=== PATIENT | male | born 1990 | race African-American/Black ===

== ENCOUNTER 2016-04-23 08:29 | Emergency (ER) | payer SELFPAY ==
[~2016-04-23] VITALS: Ht 177.8 cm; Wt 90.0 kg
[~2016-04-23 08:29] MED LIST: PROM25SU8 PO
[2016-04-23 08:30] VITALS: BP 139/90; PULSE 79; RESP 15; TEMP 97.9; O2SAT 97
--- NOTE | 2016-04-23 08:48 | PD ---
HPI Chief Complaint: Chest Pain Time Seen by Provider: 08:46 Travel History International Travel<30 days: No Contact w/Intl Traveler<30days: No Traveled to known affect area: No History of Present Illness HPI 26-year-old male with history of asthma and bronchitis, presents to the ER today because of several days history of cough, left-sided chest pains especially with deep breaths, cold symptoms. He denies any fevers, shortness of breath, or any other symptoms. Modifying Factors: None Associated Signs & Symptoms: Cough, left-sided chest pains with coughing and deep breaths, cold symptoms Risk Factors: None PFSH Past Medical History Asthma: Yes (CHILDHOOD) Diminished Hearing: No Musculoskeletal: Yes (SCOLIOSIS) Respiratory: Yes (ASHTMA) Immunizations Current: Yes Past Surgical History Surgical History: No Previous Surgery Social History Alcohol Use: No Tobacco Use: No Substance Use: No Allergies-Medications (Allergen,Severity, Reaction): Coded Allergies: No Known Allergies (Verified , 04/23/16) Reported Meds & Prescriptions Reported Meds & Active Scripts Active No Active Prescriptions or Reported Medications Review of Systems Except as stated in HPI: all other systems reviewed are Neg Physical Exam Narrative GENERAL: Well-nourished, well-developed young -[place] male patient in no acute distress. SKIN: Warm and dry. HEAD: Normocephalic. EYES: No scleral icterus. No injection or drainage. NECK: Supple, trachea midline. CARDIOVASCULAR: Regular rate and rhythm without murmurs, gallops, or rubs. RESPIRATORY: Breath sounds equal bilaterally. No accessory muscle use. No wheezes, crackles, or rhonchi. GASTROINTESTINAL: Abdomen soft, non-tender, nondistended. MUSCULOSKELETAL: No cyanosis, or edema. BACK: Nontender without obvious deformity. No CVA tenderness. Data Data Last Documented VS Vital Signs Date Time Temp Pulse Resp B/P Pulse Ox O2 Delivery O2 Flow Rate FiO2 04/23/16 10:09 71 15 129/85 98 Room Air 04/23/16 08:30 97.9 Orders Electrocardiogram (04/23/16 08:34) Chest, Single Ap (04/23/16 08:43) Basic Metabolic Panel (Bmp) (04/23/16 08:46) Ckmb (Isoenzyme) Profile (04/23/16 08:46) Complete Blood Count With Diff (04/23/16 08:46) D-Dimer (04/23/16 08:46) Magnesium (Mg) (04/23/16 08:46) Prothrombin Time / Inr (Pt) (04/23/16 08:46) Act Partial Throm Time (Ptt) (04/23/16 08:46) Troponin I (04/23/16 08:46) Ecg Monitoring (04/23/16 08:46) Bilateral Bp Monitoring (04/23/16 08:46) Iv Access Insert/Monitor (04/23/16 08:46) Oximetry (04/23/16 08:46) Oxygen Administration (04/23/16 08:46) Sodium Chloride 0.9% Flush (Ns Flush) (04/23/16 09:00) CKMB (04/23/16 08:50) CKMB% (04/23/16 08:50) Labs Laboratory Tests Test 04/23/16 08:50 White Blood Count 5.2 TH/MM3 Red Blood Count 5.58 MIL/MM3 Hemoglobin 14.9 GM/DL Hematocrit 44.3 % Mean Corpuscular Volume 79.4 FL Mean Corpuscular Hemoglobin 26.6 PG Mean Corpuscular Hemoglobin 33.5 % Concent Red Cell Distribution Width 12.6 % Platelet Count 208 TH/MM3 Mean Platelet Volume 9.5 FL Neutrophils (%) (Auto) 45.6 % Lymphocytes (%) (Auto) 38.4 % Monocytes (%) (Auto) 9.7 % Eosinophils (%) (Auto) 5.7 % Basophils (%) (Auto) 0.6 % Neutrophils # (Auto) 2.4 TH/MM3 Lymphocytes # (Auto) 2.0 TH/MM3 Monocytes # (Auto) 0.5 TH/MM3 Eosinophils # (Auto) 0.3 TH/MM3 Basophils # (Auto) 0.0 TH/MM3 CBC Comment DIFF FINAL Differential Comment Prothrombin Time 11.4 SEC Prothromb Time International 1.0 RATIO Ratio Activated Partial 28.0 SEC Thromboplast Time D-Dimer Quantitative (PE/DVT) 0.22 MG/L FEU Sodium Level 142 MEQ/L Potassium Level 3.8 MEQ/L Chloride Level 106 MEQ/L Carbon Dioxide Level 28.4 MEQ/L Anion Gap 8 MEQ/L Blood Urea Nitrogen 13 MG/DL Creatinine 0.89 MG/DL Estimat Glomerular Filtration 125 ML/MIN Rate Random Glucose 79 MG/DL Calcium Level 8.4 MG/DL Magnesium Level 2.1 MG/DL Total Creatine Kinase 129 U/L Creatine Kinase MB 0.8 NG/ML Troponin I LESS THAN 0.02 NG/ML MDM Medical Decision Making Medical Screen Exam Complete: Yes Emergency Medical Condition: Yes Medical Record Reviewed: Yes Interpretation(s) Laboratory Tests Test 04/23/16 08:50 Mean Corpuscular Volume 79.4 FL (80.0-100.0) Mean Corpuscular Hemoglobin 26.6 PG (27.0-34.0) Monocytes (%) (Auto) 9.7 % (0.0-8.0) Eosinophils (%) (Auto) 5.7 % (0.0-4.0) Calcium Level 8.4 MG/DL (8.5-10.1) Troponin I LESS THAN 0.02 NG/ML (0.02-0.05) Last 24 hours Impressions Chest X-Ray 04/23/16 0843 Signed Impressions: Service Date/Time: Saturday, April 23, 2016 08:50 - CONCLUSION: 1. No acute cardiopulmonary findings. 2. 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 Kaleb Yoo MD Differential Diagnosis Cough, dyspnea, cold symptomsbronchitis versus asthma versus costochondritis versus ACS versus pneumonia Narrative Course EKG did not show any signs of acute ST-T changes. Chest x-ray was unremarkable for any pneumonia or any signs of acute pulmonary processes. Cardiac enzymes and negative. D-dimer is negative. Vital signs are stable in the ER. At this point, suspect he may have some underlying costochondritis causing symptoms. My plan would be to treat him accordingly and symptomatically for discomfort. Follow-up with primary care doctor. Return for any worsening in symptoms as necessary. The plan has been discussed with him and he states understanding. Diagnosis Primary Impression: Costochondritis Med/Other Pt SpecificInfo: Prescription(s) given Scripts Albuterol 6.7 GM Inh (Proventil Hfa 6.7 GM Inh)90 Mcg/Act Aer2 Puff INH Q4-6H PRN (SHORTNESS OF BREATH) #1 INHALER Ref 0 Prov:Jerrell Head MD 04/23/16 Azithromycin (Zithromax Z-Alfonso)250 Mg [id number] Mg PO DIRECTED #1 DSPK Ref 0 500 MG (2 tabs) day 1, then 1 tab days 2-5. Prov:Jerrell Head MD 04/23/16 Ibuprofen (Motrin Ib)200 Mg [id number] Mg PO Q6H PRN (PAIN SCALE 1 TO 10) #20 TAB Ref 0 Prov:Jerrell Head MD 04/23/16 Disposition: 01 DISCHARGE HOME Condition: Stable Jerrell Head MD Apr 23, 2016 08:48
[2016-04-23 08:53] VITALS: BP_SYST 127; BP_SYST 129; BP_DIAS 82; BP_DIAS 83; PULSE 72; RESP 16; O2SAT 98
[2016-04-23] MEDS ORDERED: SODIUM CHLORIDE 0.9% FLUSH 5 ML FLUSH IVF PRN (09:00)
[2016-04-23 09:01] LABS: AUTOMATED NEUTROPHIL # 2.4 TH/MM3 (1.8-7.7); BASOPHIL % 0.6 % (0.0-2.0); EOSINOPHIL # 0.3 TH/MM3 (0-0.4); EOSINOPHIL % 5.7 % (0.0-4.0); HEMATOCRIT 44.3 % (39.0-51.0); HEMO FLAGS DIFF FINAL; LYMPH % 38.4 % (9.0-44.0); MEAN CELL VOLUME 79.4 FL (80.0-100.0); MEAN CORPUSCULAR HEMOGLOBIN 26.6 PG (27.0-34.0); MEAN CORPUSCULAR HGB CONC 33.5 % (32.0-36.0); MONO % 9.7 % (0.0-8.0); NEUT % 45.6 % (16.0-70.0); PLATELET COUNT 208 TH/MM3 (150-450); RED BLOOD COUNT 5.58 MIL/MM3 (4.50-5.90); RED CELL DISTRIBUTION WIDTH 12.6 % (11.6-17.2); WHITE BLOOD COUNT 5.2 TH/MM3 (4.0-11.0)
[2016-04-23 09:17] LABS: ANION GAP 8 MEQ/L (5-15); BICARBONATE 28.4 MEQ/L (21.0-32.0); BLOOD UREA NITROGEN 13 MG/DL (7-18); CHLORIDE 106 MEQ/L (98-107); GLOMERULAR FILTRATION RATE 125 ML/MIN (>89); MAGNESIUM 2.1 MG/DL (1.5-2.5); POTASSIUM 3.8 MEQ/L (3.5-5.1); SODIUM (NA) 142 MEQ/L (136-145)
[2016-04-23 09:21] LABS: CREATINE KINASE 129 U/L (39-308)
[2016-04-23 09:22] LABS: PROTHROMBIN TIME - PATIENT 11.4 SEC (9.8-11.6)
[2016-04-23 09:34] LABS: CKMB 0.8 NG/ML (0.5-3.6)
--- NOTE | 2016-04-23 09:39 | RADRPT ---
EXAM DATE/TIME: 04/23/2016 08:50 [facility] COMPARISON: No previous studies available for comparison. INDICATIONS : Chest pain and headache. MEDICAL HISTORY : None. SURGICAL HISTORY : None. ENCOUNTER: Initial ACUITY: 3 days PAIN SCORE: 6/10 LOCATION: Bilateral chest FINDINGS: The examination demonstrates rotatory scoliosis of the thoracic spine. The heart is normal in size. The lungs are clear. CONCLUSION: 1. No acute cardiopulmonary findings. 2. 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 Kaleb Yoo MD on April 23, 2016 at 9:37 Board Certified Radiologist. This report was verified electronically.
[2016-04-23 10:09] VITALS: BP 129/85; PULSE 71; RESP 15; O2SAT 98
[2016-04-23] MEDS ORDERED: ALBU6.7H INH (10:40)
[2016-04-23] MEDS ORDERED: MOTR200T4 PO (10:40)
[2016-04-23] MEDS ORDERED: ZITHTAB PO (10:40)
--- NOTE | 2016-04-23 16:13 | EKG ---
Date Performed: 04/23/2016 Time Performed: 08:38:30 PTAGE: 26 years EKG: Sinus rhythm WITH SINUS ARRHYTHMIA ST ELEVATION, PROBABLY EARLY REPOLARIZATION BORDERLINE ECG PREVIOUS TRACING : 01/13/2011 08.57 Compared to prior tracing no significant change DOCTOR: Lemuel Washington Interpretating Date/Time 04/23/2016 16:13:21
== END 2016-04-23 11:14 | disposition home or self-care (01) ==
LOC: NEPC 08:29
DX: M94.0 Chondrocostal junction syndrome [Tietze] (principal); R05 Cough; R94.31 Abnormal electrocardiogram [ECG] [EKG]; Z87.09 Personal history of other diseases of the respiratory system; Z87.39 Personal history of other diseases of the musculoskeletal system and connective tissue
CPT/HCPCS: 71010; 80048; 82550; 82552; 83735; 84484; 85025; 85379; 85610; 85730; 93005

== ENCOUNTER 2016-05-09 18:24 | Emergency (ER) | payer SELFPAY ==
[~2016-05-09] VITALS: Ht 177.8 cm; Wt 85.0 kg
[~2016-05-09 18:24] MED LIST changes: +ALBU6.7H INH; +MOTR200T4 PO; -PROM25SU8 PO; +ZITHTAB PO
[2016-05-09 18:25] VITALS: BP 139/80; PULSE 64; RESP 20; TEMP 98.1; O2SAT 98
[2016-05-09 18:45] VITALS: O2SAT 98
[2016-05-09] MEDS ORDERED: SODIUM CHLORIDE 0.9% FLUSH 5 ML FLUSH IVF PRN (18:45)
--- NOTE | 2016-05-09 18:55 | PD ---
HPI Chief Complaint: Cold / Flu Symptoms Time Seen by Provider: 18:49 Travel History International Travel<30 days: No Contact w/Intl Traveler<30days: No Traveled to known affect area: No History of Present Illness HPI 26-year-old male with history of asthma and bronchitis presents to the ED for evaluation of less than 24-hour history of cough with left-sided chest pain, worsened with coughing or deep breathing. Patient also endorses sneezing, clear rhinorrhea and sore throat 3 days. He denies fever or chills. Denies palpitations, shortness of breath, diaphoresis, nausea, vomiting, abdominal pain , changes in bowel habits, dysuria or back pain. PFSH Past Medical History Asthma: Yes (CHILDHOOD) Diminished Hearing: No Musculoskeletal: Yes (SCOLIOSIS) Respiratory: Yes (ASHTMA) Immunizations Current: Yes Tetanus Vaccination: Unknown ?: Not Past Surgical History Surgical History: No Previous Surgery Social History Alcohol Use: No Tobacco Use: No Substance Use: No Allergies-Medications (Allergen,Severity, Reaction): Coded Allergies: No Known Allergies (Verified , 05/09/16) Reported Meds & Prescriptions Reported Meds & Active Scripts Active Azithromycin 250 Mg Tab 250 Mg PO DIRECTED Take 2 tabs (500 mg) on day 1 then 1 tab daily x 4 days. Review of Systems Except as stated in HPI: all other systems reviewed are Neg Physical Exam Narrative GENERAL: Well-nourished, well-developed black male in no acute distress. SKIN: Warm and dry. HEAD: Normocephalic. Atraumatic. EYES: No scleral icterus. No injection or drainage. PERRLA. EOMI. ENT: Pearly swartz tympanic membranes bilaterally. Nasal mucosa is moist. Oropharynx with mild posterior erythema, no edema or exudate. Uvula midline. Airway patent. NECK: Supple, trachea midline. No JVD or lymphadenopathy. CARDIOVASCULAR: Regular rate and rhythm without murmurs, gallops, or rubs. 2+ DP and radial pulses bilaterally. No tenderness to palpation of the precordium. RESPIRATORY: Breath sounds clear and equal bilaterally. No accessory muscle use. GASTROINTESTINAL: Abdomen soft, non-tender, nondistended. + Bowel sounds MUSCULOSKELETAL: No cyanosis, or edema. Patient is ambulatory, moves the extremities spontaneously. BACK: Nontender without obvious deformity. No CVA tenderness. Data Data Last Documented VS Vital Signs Date Time Temp Pulse Resp B/P Pulse Ox O2 Delivery O2 Flow Rate FiO2 05/09/16 18:45 98 Room Air 05/09/16 18:25 98.1 64 20 139/80 Orders Complete Blood Count With Diff (05/09/16 18:41) Comprehensive Metabolic Panel (05/09/16 18:41) Influenzae A/B Antigen (05/09/16 18:41) Iv Access Insert/Monitor (05/09/16 18:41) Electrocardiogram (05/09/16 18:41) Ecg Monitoring (05/09/16 18:41) Oximetry (05/09/16 18:41) Chest, Single Ap (05/09/16 18:41) Sodium Chloride 0.9% Flush (Ns Flush) (05/09/16 18:45) Group A Rapid Strep Screen (05/09/16 18:41) Strep Culture (Group A) (05/09/16 19:00) Labs Laboratory Tests Test 05/09/16 19:00 White Blood Count 6.1 TH/MM3 Red Blood Count 5.17 MIL/MM3 Hemoglobin 13.6 GM/DL Hematocrit 41.4 % Mean Corpuscular Volume 80.1 FL Mean Corpuscular Hemoglobin 26.4 PG Mean Corpuscular Hemoglobin 32.9 % Concent Red Cell Distribution Width 12.5 % Platelet Count 176 TH/MM3 Mean Platelet Volume 10.4 FL Neutrophils (%) (Auto) 57.4 % Lymphocytes (%) (Auto) 30.3 % Monocytes (%) (Auto) 8.0 % Eosinophils (%) (Auto) 3.9 % Basophils (%) (Auto) 0.4 % Neutrophils # (Auto) 3.5 TH/MM3 Lymphocytes # (Auto) 1.9 TH/MM3 Monocytes # (Auto) 0.5 TH/MM3 Eosinophils # (Auto) 0.2 TH/MM3 Basophils # (Auto) 0.0 TH/MM3 CBC Comment DIFF FINAL Differential Comment Sodium Level 141 MEQ/L Potassium Level 4.0 MEQ/L Chloride Level 106 MEQ/L Carbon Dioxide Level 29.0 MEQ/L Anion Gap 6 MEQ/L Blood Urea Nitrogen 14 MG/DL Creatinine 0.86 MG/DL Estimat Glomerular Filtration 130 ML/MIN Rate Random Glucose 70 MG/DL Calcium Level 8.4 MG/DL Total Bilirubin 0.4 MG/DL Aspartate Amino Transf 33 U/L (AST/SGOT) Alanine Aminotransferase 19 U/L (ALT/SGPT) Alkaline Phosphatase 58 U/L Total Protein 7.5 GM/DL Albumin 4.0 GM/DL MDM Medical Decision Making Medical Screen Exam Complete: Yes Emergency Medical Condition: Yes Differential Diagnosis Asthma exacerbation versus viral syndrome versus pneumonia versus other Narrative Course 26-year-old male presents to the ED for evaluation of less than 24 hour history of nonproductive cough, left-sided chest pain, worse with deep breathing, clear rhinorrhea, sore throat and sneezing. Patient denies fever, chills, headache, palpitations, shortness of breath, nausea, vomiting, abdominal pain, dysuria. Vitals reviewed. Physical exam reveals mild posterior oropharyngeal erythema, otherwise unremarkable. Review of the record reveals the patient was seen 04/24 with similar symptoms. Noncompliant with azithromycin prescribed at that visit. EKG: Rate 69, sinus rhythm. Normal intervals. Normal axis. No ST elevations or depressions. Reviewed by Dr. Head CXR: No acute findings per radiology read. CBC: No leukocytosis or anemia CMP: No electrolyte abnormalities Influenza: Negative Rapid strep swab: Negative I discussed the results of the workup with the patient. I'm unsure of the source of this cough but given his history of asthma will prescribe azithromycin in the event of a early URI. I instructed the patient is at all medication as prescribed, even if symptoms resolve, continue with home albuterol treatments, follow-up with the primary care provider. He indicated understanding of the instructions and is amenable to the plan of care. He stable and discharged home. Diagnosis Primary Impression: Costochondritis Additional Impressions: Cough Noncompliance Referrals: Primary Care Physician Patient Instructions: Chronic Cough (ED), General Instructions Additional Instructions: Rest, hydrate. Take antibiotics as prescribed, even if symptoms resolved. Continue with albuterol treatments at home as previously prescribed. Follow-up with her primary care provider this week. Return to the ED for any urgent or emergent medical condition. Med/Other Pt SpecificInfo: Prescription(s) given Scripts Azithromycin 250 Mg Saf279 Mg PO DIRECTED #6 TAB Ref 0 Take 2 tabs (500 mg) on day 1 then 1 tab daily x 4 days. Prov:Jerrell Head MD 05/09/16 Disposition: 01 DISCHARGE HOME Condition: Stable Megan Sinha May 09, 2016 18:55
[2016-05-09 19:32] LABS: AUTOMATED NEUTROPHIL # 3.5 TH/MM3 (1.8-7.7); BASOPHIL % 0.4 % (0.0-2.0); EOSINOPHIL # 0.2 TH/MM3 (0-0.4); EOSINOPHIL % 3.9 % (0.0-4.0); HEMATOCRIT 41.4 % (39.0-51.0); HEMO FLAGS DIFF FINAL; LYMPH % 30.3 % (9.0-44.0); LYMPHOCYTE # 1.9 TH/MM3 (1.0-4.8); MEAN CELL VOLUME 80.1 FL (80.0-100.0); MEAN CORPUSCULAR HEMOGLOBIN 26.4 PG (27.0-34.0); MEAN CORPUSCULAR HGB CONC 32.9 % (32.0-36.0); NEUT % 57.4 % (16.0-70.0); PLATELET COUNT 176 TH/MM3 (150-450); RED BLOOD COUNT 5.17 MIL/MM3 (4.50-5.90); RED CELL DISTRIBUTION WIDTH 12.5 % (11.6-17.2); WHITE BLOOD COUNT 6.1 TH/MM3 (4.0-11.0)
[2016-05-09 20:04] LABS: ALKALINE PHOSPHATASE 58 U/L (45-117); ALT (GPT) 19 U/L (12-78); ANION GAP 6 MEQ/L (5-15); AST (GOT) 33 U/L (15-37); BLOOD UREA NITROGEN 14 MG/DL (7-18); CHLORIDE 106 MEQ/L (98-107); GLOMERULAR FILTRATION RATE 130 ML/MIN (>89); SODIUM (NA) 141 MEQ/L (136-145); TOTAL BILIRUBIN ADULT 0.4 MG/DL (0.2-1.0)
--- NOTE | 2016-05-09 20:09 | RADRPT ---
EXAM DATE/TIME: 05/09/2016 19:15 [facility] COMPARISON: No previous studies available for comparison. INDICATIONS : Cold symptoms. MEDICAL HISTORY : None. SURGICAL HISTORY : None. ENCOUNTER: Initial ACUITY: 1 day PAIN SCORE: 0/10 LOCATION: Bilateral chest FINDINGS: A single view of the chest demonstrates the lungs to be symmetrically aerated without evidence of mas s, infiltrate or effusion. There is a moderate dextroscoliosis. CONCLUSION: 1. No acute findings. Moderate dextroscoliosis. Timothy Collins MD on May 09, 2016 at 20:03 Board Certified Radiologist. This report was verified electronically.
[2016-05-09] MEDS ORDERED: AZIT250T3 PO (20:47)
--- NOTE | 2016-05-10 09:48 | EKG ---
Date Performed: 05/09/2016 Time Performed: 18:52:54 PTAGE: 26 years EKG: Sinus rhythm NORMAL ECG Compared to prior tracing no significant change PREVIOUS TRACING : 04/23/2016 08.38 DOCTOR: Aidan Sahni Interpretating Date/Time 05/10/2016 09:45:51
== END 2016-05-09 21:59 | disposition home or self-care (01) ==
LOC: NEPA 18:24
DX: M94.0 Chondrocostal junction syndrome [Tietze] (principal); J45.909 Unspecified asthma, uncomplicated; J02.9 Acute pharyngitis, unspecified; R07.9 Chest pain, unspecified; Z91.14 Patient's other noncompliance with medication regimen
CPT/HCPCS: 71010; 80053; 85025; 87081; 87804; 87880; 93005; 99283

== ENCOUNTER 2016-05-21 10:25 | Emergency (ER) | payer SELFPAY ==
[~2016-05-21] VITALS: Ht 177.8 cm; Wt 90.0 kg
[~2016-05-21 10:25] MED LIST changes: -ALBU6.7H INH; +AZIT250T3 PO; -MOTR200T4 PO; -ZITHTAB PO
[2016-05-21 10:26] VITALS: BP 145/86; PULSE 84; RESP 14; TEMP 98; O2SAT 98
--- NOTE | 2016-05-21 11:40 | PD ---
HPI Chief Complaint: Eye Problems/Injury Time Seen by Provider: 11:39 Travel History International Travel<30 days: No Contact w/Intl Traveler<30days: No Traveled to known affect area: No History of Present Illness HPI Patient comes in complaining of bilateral eye irritation and crusting over and began to 3 days ago. Patient denies any trauma, change in vision, fevers, or headaches. Denies any foreign body sensation or contact lens use. Patient reports he awoke with this. Patient has been using [id number] eyedrops with no improvement of symptoms. PFSH Past Medical History Asthma: Yes (CHILDHOOD) Diminished Hearing: No Musculoskeletal: Yes (SCOLIOSIS) Respiratory: Yes (ASHTMA) Immunizations Current: Yes Social History Alcohol Use: No Tobacco Use: No Substance Use: No Allergies-Medications (Allergen,Severity, Reaction): Uncoded Allergies: ANTIBIOTICS (Allergy, Severe, FACIAL EDEMA, 05/21/16) Reported Meds & Prescriptions Reported Meds & Active Scripts Active Tobrex Opth Oint (Tobramycin Sulfate) 0.3 % Oint 1 Applic EACH EYE QID Azithromycin 250 Mg Tab 250 Mg PO DIRECTED Take 2 tabs (500 mg) on day 1 then 1 tab daily x 4 days. Review of Systems Except as stated in HPI: all other systems reviewed are Neg Physical Exam Narrative GENERAL: Well-developed, overly nourished, in no acute distress, and non-ill appearing. SKIN: Warm and dry. HEAD: Atraumatic. Normocephalic. EYES: Pupils equal and round. EOMI. No scleral icterus. Bilateral eye injection with clear drainage. ENT: No nasal bleeding or discharge. Mucous membranes pink and moist. NECK: Trachea midline. Supple. No nuclear rigidity. RESPIRATORY: No accessory muscle use. No respiratory distress. MUSCULOSKELETAL: No obvious deformities. No clubbing. No cyanosis. No edema. Full range of motion. NEUROLOGICAL: Awake and alert. No obvious cranial nerve deficits. Motor grossly within normal limits. Normal speech. PSYCHIATRIC: Appropriate mood and affect; insight and judgment normal. Data Data Last Documented VS Vital Signs Date Time Temp Pulse Resp B/P Pulse Ox O2 Delivery O2 Flow Rate FiO2 05/21/16 10:26 98.0 84 14 145/86 98 MDM Medical Decision Making Medical Screen Exam Complete: Yes Emergency Medical Condition: Yes Differential Diagnosis Viral conjunctivitis, allergic conjunctivitis, bacterial conjunctivitis, other Narrative Course Patient with mild conjunctivitis. No evidence of foreign body by history or exam. No history to suspect corneal ulceration as well. There is no evidence of iritis, glaucoma, preseptal cellulitis, periorbital or orbital cellulitis. Will place patient on ophthalmologic antibiotics for nonspecific conjunctivitis. This was discussed with the patient. The patient was instructed to follow up with their physician or return here if worsened, increased pain, decreased vision, swelling around the eye or as needed. Ophthalmology referral was given if persists. The patient agreed with plan. Patient in no obvious distress upon re-evaluation. Patient was asked if they wanted to speak to my attending, which the patient did not wish to do at this time. Any questions/concerns in reference to patient diagnosis/condition discussed and clarified prior to patient's discharge. Reinforced sheer importance of close follow up with patient's primary physician or primary care clinic. Instructed patient to return to ED immediately, if symptoms return/ worsen. Pt showed understanding of above instructions. Further instructions and recommendations were detailed in discharge paperwork. Pt ambulated without difficulty out of ED at discharge. Diagnosis Primary Impression: Conjunctivitis of both eyes Qualified Code: H10.33 - Acute conjunctivitis of both eyes, unspecified acute conjunctivitis type Referrals: Ava Rodriguez MD Patient Instructions: Conjunctivitis (ED), General Instructions Additional Instructions: Follow-up with your primary care physician and/or territory sales manager in 2-3 days for evaluation. Take all medication as prescribed. Return to the emergency department if symptoms get worse. Med/Other Pt SpecificInfo: Prescription(s) given Scripts Tobramycin Opth Oint (Tobrex Opth Oint)0.3 % Oint1 Applic EACH EYE QID #1 TUBE Ref 0 Prov:Javier Nguyen MD 05/21/16 Disposition: 01 DISCHARGE HOME Condition: Stable Bartolome Hassan May 21, 2016 11:40
[2016-05-21] MEDS ORDERED: TOBR.3%O EACH EYE (11:41)
== END 2016-05-21 12:00 | disposition home or self-care (01) ==
LOC: NEPB 10:25
DX: H10.33 Unspecified acute conjunctivitis, bilateral (principal); J45.909 Unspecified asthma, uncomplicated
CPT/HCPCS: 99282

== ENCOUNTER 2016-11-08 08:14 | Emergency (ER) | payer SELFPAY ==
[~2016-11-08] VITALS: Ht 177.8 cm; Wt 98.0 kg
[~2016-11-08 08:14] MED LIST changes: +TOBR.3%O EACH EYE
[2016-11-08 08:15] VITALS: BP 127/80; PULSE 60; RESP 16; TEMP 98.1; O2SAT 98
[2016-11-08 08:29] VITALS: BP 138/83; PULSE 64; RESP 19; O2SAT 99
[2016-11-08] MEDS ORDERED: RESP: ALBUTEROL 2.5 MG/IPRATROPIUM 0.5 MG NEB (SCH) NEB ONE (08:30)
[2016-11-08] MEDS ORDERED: IBUPROFEN 600 MG TAB PO ONE (08:30)
[2016-11-08] MEDS ORDERED: ALBUAER3 INH (08:35)
--- NOTE | 2016-11-08 08:35 | PD ---
HPI Chief Complaint: Chest Pain Time Seen by Provider: 08:20 Travel History International Travel<30 days: No Contact w/Intl Traveler<30days: No Traveled to known affect area: No History of Present Illness HPI This is a 26-year-old male who presents to the emergency department with 1 day of chest discomfort feeling like a sharp stabbing pain in the center of his chest, radiating to the right shoulder, associated with some shortness of breath , moderate severity. He also says he has a nonproductive cough and rhinorrhea. He denies any history of diabetes, hypertension, hyperlipidemia, family history of heart disease, smoking, or cocaine use. PFSH Past Medical History Asthma: Yes (CHILDHOOD) Diminished Hearing: No Musculoskeletal: Yes (SCOLIOSIS) Respiratory: Yes (ASTHMA) Immunizations Current: Yes Influenza Vaccination: Yes Past Surgical History Surgical History: No Previous Surgery Social History Alcohol Use: No Tobacco Use: No Substance Use: No Allergies-Medications (Allergen,Severity, Reaction): Coded Allergies: No Known Allergies (Unverified , 11/08/16) Reported Meds & Prescriptions Reported Meds & Active Scripts Active Proair Hfa 8.5 GM Inh (Albuterol Sulfate) 90 Mcg/Act Aer 2 Puff INH Q4-6H PRN 108 mcg/actuation Review of Systems Except as stated in HPI: all other systems reviewed are Neg Physical Exam Narrative GENERAL:Well appearing, no acute distress SKIN: Focused skin assessment warm and dry. HEAD: Atraumatic. Normocephalic. EYES: Pupils equal and round. No injection or drainage. ENT: Moist mucous membranes NECK: Trachea midline. CARDIOVASCULAR: Regular rate and rhythm. No murmur appreciated. RESPIRATORY: Clear to auscultation. Breath sounds equal bilaterally. GASTROINTESTINAL: Abdomen soft, non-tender, nondistended. MUSCULOSKELETAL: No obvious deformities. NEUROLOGICAL: Awake and alert. No obvious cranial nerve deficits. Moving all extremities. PSYCHIATRIC: Appropriate mood and affect; insight and judgment normal. Data Data Last Documented VS Vital Signs Date Time Temp Pulse Resp B/P Pulse Ox O2 Delivery O2 Flow Rate FiO2 11/08/16 08:29 64 19 138/83 99 Room Air 11/08/16 08:15 98.1 Orders Electrocardiogram (11/08/16 ) Chest, Pa & Lat (11/08/16 ) Ibuprofen (Motrin) (11/08/16 08:30) Albuterol-Ipratropium Neb (Duoneb Neb) (11/08/16 08:30) [facility] Medical Decision Making Medical Screen Exam Complete: Yes Emergency Medical Condition: Yes Medical Record Reviewed: Yes (patient has been here twice in the emergency department this year with chest discomfort and was diagnosed with costochondritis. In March he had blood work done which was reassuring.) Interpretation(s) EKG: Normal sinus rhythm with no ST changes, unchanged from prior EKG Differential Diagnosis Acute coronary syndrome, pericarditis, costochondritis, asthma Narrative Course This is a 26-year-old male who presents to the emergency department with chest discomfort. He's been here twice this year for the same symptoms and was diagnosed at that time with costochondritis. He also has some upper respiratory symptoms including a cough and rhinorrhea. He has no risk factors for heart disease. His symptoms are very atypical and I doubt they're cardiac in nature. EKG is unchanged from prior. Chest x-rays reassuring. He was given a DuoNeb and I think we can treat him empirically for bronchospasm and reactive airway disease as the etiology of his symptoms. Diagnosis Primary Impression: Chest pain Qualified Code: R07.9 - Chest pain, unspecified type Patient Instructions: General Instructions Additional Instructions: If you develop severe chest pain, shortness of breath, sweating, lightheadedness , dizziness or difficulty breathing return to the emergency department immediately. Followup with your primary care physician in 2-3 days if your symptoms are not resolved. Med/Other Pt SpecificInfo: Prescription(s) given Scripts Albuterol 8.5 GM Inh (Proair Hfa 8.5 GM Inh)90 Mcg/Act Aer2 Puff INH Q4-6H PRN ( SHORTNESS OF BREATH) #1 INHALER 108 mcg/actuation Prov:Nithya Merritt MD 11/08/16 Disposition: 01 DISCHARGE HOME Condition: Stable Nithya Merritt MD Nov 08, 2016 08:35
--- NOTE | 2016-11-08 08:56 | RADRPT ---
EXAM DATE/TIME: 11/08/2016 08:52 [facility] COMPARISON: No previous studies available for comparison. INDICATIONS : Chest pain and shortness of breath starting this morning. MEDICAL HISTORY : Asthma SURGICAL HISTORY : None. ENCOUNTER: Initial ACUITY: 1 day PAIN SCORE: 7/10 LOCATION: Bilateral chest FINDINGS: PA and lateral views of the chest demonstrate the lungs to be symmetrically aerated without evidence of mass, infiltrate or effusion. The cardiomediastinal contours are unremarkable. Osseous structure s are intact. Significant scoliotic curvature of the thoracic and lumbar spine. CONCLUSION: No acute cardiopulmonary disease. Dayne Jane Jr., MD on November 08, 2016 at 8:54 Board Certified Radiologist. This report was verified electronically.
--- NOTE | 2016-11-08 16:53 | EKG ---
Date Performed: 11/08/2016 Time Performed: 08:27:27 PTAGE: 26 years EKG: Sinus rhythm WITH SINUS ARRHYTHMIA NORMAL ECG PREVIOUS TRACING : 05/09/2016 18.52 Compared to prior tracing no significant change DOCTOR: Shoshana Ferrer Interpretating Date/Time 11/08/2016 16:50:26
== END 2016-11-08 09:24 | disposition home or self-care (01) ==
LOC: NEPE 08:14
DX: R07.89 Other chest pain (principal); J45.909 Unspecified asthma, uncomplicated
CPT/HCPCS: 71020; 93005; 94664; 99283

== ENCOUNTER 2017-06-29 08:49 | Emergency (ER) | payer SELFPAY ==
[~2017-06-29] VITALS: Ht 180.3 cm; Wt 98.0 kg
[~2017-06-29 08:49] MED LIST changes: +ALBUAER3 INH; -AZIT250T3 PO; -TOBR.3%O EACH EYE
[2017-06-29 08:51] VITALS: BP 158/90; PULSE 95; RESP 19; TEMP 98.2; O2SAT 95
[2017-06-29] MEDS: RESP: ALBUTEROL 2.5 MG/IPRATROPIUM 0.5 MG NEB (SCH) INH ×2 (09:25→09:26)
[2017-06-29] MEDS ORDERED: predniSONE 20 MG TAB PO ONE (09:30)
--- NOTE | 2017-06-29 09:42 | PD ---
HPI Chief Complaint: Respiratory Symptoms Time Seen by Provider: 09:15 Travel History International Travel<30 days: No Contact w/Intl Traveler<30days: No Traveled to known affect area: No History of Present Illness HPI 27-year-old male, with history of asthma, presents to the emergency department with complaint of asthma exacerbation. Air-conditioner filter was changed in his health yesterday and he has had chest tightness, shortness of breath and wheezing since. Denies recent illness to include sore throat, ear pain, nasal congestion. Reports subjective fevers and cough. Has not taken his temperature and can cannot report a T-max. Denies chest pain or vomiting. Has not had an asthma exacerbation in a while and does not have an inhaler. Took DayQuil this morning at 6 AM. Symptoms are mild to moderate in severity. No known relieving factors. Aggravated by air filter being changed. No known allergies.. No primary care provider. History of asthma. Has no other medical complaints. No other modifying factors or associated signs and symptoms. PFSH Past Medical History Asthma: Yes (CHILDHOOD) Diminished Hearing: No Musculoskeletal: Yes (SCOLIOSIS) Respiratory: Yes (ASTHMA) Immunizations Current: Yes Tetanus Vaccination: < 5 Years Past Surgical History Surgical History: No Previous Surgery Social History Alcohol Use: No Tobacco Use: No Substance Use: No Allergies-Medications (Allergen,Severity, Reaction): Coded Allergies: No Known Allergies (Unverified Adverse Reaction, Unknown, 06/29/17) Reported Meds & Prescriptions Reported Meds & Active Scripts Active Deltasone (Prednisone) 20 Mg Tab 40 Mg PO DAILY 4 Days start 06/30/2017 Ventolin Hfa 18 GM Inh (Albuterol Sulfate) 90 Mcg/Act Aer 2 Puff INH Q4-6H PRN Review of Systems Except as stated in HPI: all other systems reviewed are Neg Physical Exam Narrative GENERAL: Well-nourished, well-developed black male patient, in no acute distress ; afebrile, nontoxic-appearing SKIN: Warm and dry. HEAD: Atraumatic. Normocephalic. EYES: Pupils equal and round. No scleral icterus. No injection or drainage. ENT: Mucosa pink and moist. Airway patent. EARS: Bilateral pinnae and external canals appear within normal limits. NECK: Trachea midline. No lymphadenopathy. CARDIOVASCULAR: Regular rate and rhythm. No murmur appreciated. RESPIRATORY: No accessory muscle use. Lungs with decreased lung sounds throughout to auscultation. Breath sounds equal bilaterally. No retractions or tachypnea. No Audible wheezing noted. GASTROINTESTINAL: Rounded. MUSCULOSKELETAL: No obvious deformities. No clubbing. No cyanosis. No edema. NEUROLOGICAL: Awake and alert. Oriented 3. No obvious cranial nerve deficits. Motor grossly within normal limits. Normal speech. Moves all extremities. 5/5 strength to all extremities. PSYCHIATRIC: Appropriate mood and affect; insight and judgment normal. Data Data Last Documented VS Vital Signs Date Time Temp Pulse Resp B/P (MAP) Pulse Ox O2 Delivery O2 Flow Rate FiO2 06/29/17 08:51 98.2 95 19 158/90 (112) 95 Orders Orders Prednisone (Deltasone) (06/29/17 09:30) Albuterol-Ipratropium Neb (Duoneb Neb) (06/29/17 09:30) Ed Discharge Order (06/29/17 09:54) [facility] Medical Decision Making Medical Screen Exam Complete: Yes Emergency Medical Condition: Yes Medical Record Reviewed: Yes Differential Diagnosis Asthma exacerbation, bronchitis, pneumonia Narrative Course 27-year-old male with history of asthma with asthma exacerbation. Patient is in no acute distress. Lungs with decreased lung sounds throughout. No audible wheezing. 95% SaO2 on room air. Without retractions or tachypnea. DuoNeb 2 and Deltasone ordered. 0954: On reexamination patient reports improvement in symptoms. Lungs are clear and equal throughout with improved lung sounds. He denies chest tightness or shortness of breath. Ventolin inhaler and Deltasone prescribed for home. Instructed patient to follow up with primary care provider. Patient verbalizes understanding and agreement with treatment plan. Patient is medically cleared and stable for discharge. Discussed reasons to return to the emergency department. Patient agrees with treatment plan. The patients vital signs are stable and the patient is stable for outpatient follow-up and treatment. Patient discharged home, stable and in no acute distress. Diagnosis Primary Impression: Asthma exacerbation Qualified Codes: J45.901 - Unspecified asthma with (acute) exacerbation Referrals: [facility] Primary Care Physician Patient Instructions: Asthma (ED), General Instructions Departure Forms: Tests/Procedures, Work Release Enter return to work date: Jun 30, 2017 Additional Instructions: Use albuterol inhaler as needed for shortness of breath and/or wheezing Take oral steroids as prescribed and complete full course Avoid asthma triggers such as smoking cigarettes, second hand smoke, dust, known allergens Follow-up with primary care provider Return to emergency department immediately with worsening of symptoms Med/Other Pt SpecificInfo: Prescription(s) given Scripts Prednisone (Deltasone) 20 Mg Tab 40 MG PO DAILY for 4 Days, #8 TAB 0 Refills start 06/30/2017 Prov: Fatou Bran 06/29/17 Albuterol 18 GM Inh (Ventolin Hfa 18 GM Inh) 90 Mcg/Act Aer 2 PUFF INH Q4-6H Y for SOB/WHEEZING, #1 INHALER 0 Refills Prov: Fatou Bran 06/29/17 Disposition: 01 DISCHARGE HOME Condition: Stable Fatou Bran Jun 29, 2017 09:42
[2017-06-29] MEDS ORDERED: VENTAER INH (09:51)
[2017-06-29] MEDS ORDERED: PRED-503 PO (09:51)
== END 2017-06-29 10:06 | disposition home or self-care (01) ==
LOC: NEPK 08:49
DX: J45.901 Unspecified asthma with (acute) exacerbation (principal)
CPT/HCPCS: 94640; 94664; 99283; J7512